=== PATIENT | male | born 1975 | race Two or more races ===

== ENCOUNTER 2024-03-11 18:31 | Emergency (ER) | payer MEDICAID ==
[~2024-03-11] VITALS: Ht 167.6 cm; Wt 71.0 kg
[2024-03-11 20:00] VITALS: TEMP 97.3
[2024-03-11] MEDS: LIDOCAINE 1%/EPI 1:200,000/PF 10 ML VIAL SQ ONE (20:07)
[2024-03-11] MEDS: BACITRACIN 0.9 GM PACKET OINTMENT TP ONE (20:07)
[2024-03-11] MEDS: PERTUSS(ACELL),DIPH,TET/PF 0.5 ML SYRINGE [ADULT] IM. ONE (20:07)
[2024-03-11] MEDS: LIDOCAINE 1% 10 ML VIAL SQ ONE (20:08)
[2024-03-11] MEDS ORDERED: BACI28.410 TP (21:14)
[2024-03-11 21:30] VITALS: BP 138/72; PULSE 88; RESP 18; O2SAT 98
[2024-03-11] MEDS ORDERED: ACET-3385 PO (21:43)
[2024-03-11] MEDS ORDERED: IBUP-1492 PO (21:43)
== END 2024-03-11 22:25 | disposition home or self-care (01) ==
LOC: EMS 18:31
DX: S61.011A Laceration without foreign body of right thumb without damage to nail, initial encounter (principal); Z23 Encounter for immunization; W27.0XXA Contact with workbench tool, initial encounter; Y93.89 Activity, other specified; Y92.89 Other specified places as the place of occurrence of the external cause; Y99.8 Other external cause status
CPT/HCPCS: 99283; 73140; 90715; 90471; 12002; 96372; J3490 ×2

== ENCOUNTER 2024-03-21 11:38 | Emergency (ER) | payer MEDICAID ==
[~2024-03-21] VITALS: Ht 185.4 cm; Wt 71.4 kg
[~2024-03-21 11:38] MED LIST: ACET-3385 PO; BACI28.410 TP; IBUP-1492 PO
[2024-03-21 11:58] VITALS: TEMP 98.3
[2024-03-21 15:01] VITALS: BP 118/70; PULSE 82; RESP 18; O2SAT 98
== END 2024-03-21 15:05 | disposition home or self-care (01) ==
LOC: EMS 11:38
DX: S61.411D Laceration without foreign body of right hand, subsequent encounter (principal); Z48.02 Encounter for removal of sutures; X58.XXXD Exposure to other specified factors, subsequent encounter
CPT/HCPCS: 99281; Z7502